=== PATIENT | male | born 1950 | race Caucasian/White ===

== ENCOUNTER 2017-02-15 08:56 | Emergency (ER) | payer OTHER ==
[2017-02-15 09:09] VITALS: BP 111/77; PULSE 73; RESP 16; TEMP 97.7; O2SAT 95
--- NOTE | 2017-02-15 09:16 | EDPHY ---
H & P Stated Complaint: R flank pain x 3 days; thinks he has kidney stone Time Seen by Provider: 02/15/17 09:11 HPI/ROS: CHIEF COMPLAINT: Right flank pain HISTORY OF PRESENT ILLNESS: This patient is a 67 year old male with history of kidney stones complaining of right flank pain. Onset of right-sided low back pain 3 days ago. The pain has been intermittent and mild over the past 3 days, though greatly exacerbated today. This morning, the pain became so intense his knees buckled. The pain is generally worse when he is upright and exacerbated by movement. Associated with radiation towards his groin. He denies any pain radiating to his leg. He denies dysuria or hematuria, but he has noted increased difficulty with starting to urinate. His current symptoms feel similar to his past episodes of kidney stones. He called his primary care provider's office, and staff recommended he present to the emergency department for evaluation. He denies abdominal pain, diarrhea, fever, chest pain, shortness of breath, headache, or other associated symptoms. REVIEW OF SYSTEMS: A 10 point review of systems was performed and is negative with the exception of the elements mentioned in the history of present illness. - Personal History Current Tetanus Diphtheria and Acellular Pertussis (TDAP): Yes - Medical/Surgical History PMH: 1. History of prostate cancer s/p prostatectomy 2. Orthopedic surgeries 3. Kidney stones 4. Deviated septum 5. Depression 6. Anxiety 7. Migraines Hx Asthma: No Hx Chronic Respiratory Disease: No Hx Diabetes: No Hx Cardiac Disease: No Hx Renal Disease: No Hx Cirrhosis: No Hx Alcoholism: No Hx HIV/AIDS: No Hx Splenectomy or Spleen Trauma: No Other PMH: ED, Depression, Anxiety/Sleep issues. ortho surgeries, deviated septum, prostatectomy for prostate CA, kidney stones, migraines - Social History Smoking Status: Never smoked Additional Social History: Nonsmoker. Occasional alcohol use. Retired. Former actor. Lives in [place]. - Physical Exam Exam: General Appearance: Alert, comfortably reading a book Eyes: Pupils equal and round, no conjunctival pallor or injection ENT, Mouth: Mucous membranes moist Neck: Normal inspection Respiratory: Lungs are clear to auscultation Cardiovascular: Regular rate and rhythm Abdomen: soft, suprapubic and RUQ tenderness, no peritoneal signs Back: Normal inspection, no midline tenderness to palpation or percussion, no CVA tenderness Neurological: A&O, nonfocal, normal gait Skin: Warm and dry, no rash Extremities: Nontender, no pedal edema Psychiatric: Mood and affect normal Constitutional: Initial Vital Signs Temperature (C) 36.5 C 02/15/17 09:05 Heart Rate 73 02/15/17 09:05 Respiratory Rate 16 02/15/17 09:05 Blood Pressure 111/77 02/15/17 09:05 O2 Sat (%) 95 02/15/17 09:05 O2 Delivery Mode Room Air Allergies/Adverse Reactions: codeine Allergy (Mild, Verified 02/15/17 09:05) nausea Penicillins Allergy (Mild, Verified 02/15/17 09:05) Rash Home Medications: Medication Instructions Recorded Lexapro 03/18/14 Medical Decision Making ED Course/Re-evaluation: 67 y/o male with history of kidney stones presents with right lower back/flank pain worsening over the last three days. Exam reveals suprapubic and RUQ tenderness. Plan for CT abdomen/pelvis to r/o kidney stone. 10:[address] Hood, radiologist. CT shows inflammation near psoas musculature. No evidence of kidney stones. Plan for follow up with primary care in 2-3 days. He will need a repeat CT in one month to ensure that the inflammation is not a soft tissue tumor. The patient understands the CT finding and will follow up. Reassessed patient. Reviewed CT results with him and gave him a copy of the report. Follow up and return precautions discussed. He is comfortable with this plan. Differential Diagnosis: Differential diagnosis includes though it is not limited to appendicitis, cholecystitis, diverticulitis, pyelonephritis, bowel perforation, small bowel obstruction. - Data Points Laboratory Results: Laboratory Results 02/15/17 09:48 02/15/17 09:48 Departure - Departure Disposition: Home, Routine, Self-Care Clinical Impression: Flank pain Condition: Good Instructions: Acute Low Back Pain (ED), Back Pain (ED) Additional Instructions: 1. Take ibuprofen or Tylenol as directed below as needed for pain. 2. Follow up with your primary care provider in 2-3 days for continued evaluation of symptoms. 3. Obtain a repeat abdomen/pelvis CT in about one month as we discussed. 4. Return to the emergency department for worsening or uncontrollable pain, weakness, numbness, or tingling in your legs, difficulty controlling your bowels or bladder, fever, inability to urinate, or other worsening of condition. Adult Pain & Fever Control: We recommend Acetaminophen (Tylenol) and Ibuprofen (Motrin,Advil) for pain and fever control. When fever is high or pain severe, both drugs can be used at the same time, but at different intervals. Please note the time differences. Your dose is: Acetaminophen 650mg every 4 to 6 hours Ibuprofen 600mg every 6-8 hours with food Note: do not take Acetaminophen with Hydrocodone (Vicodin, Lortab) or Oxycodone (Percocet). These medications also contain Acetaminophen. No more than 3000mg of Acetaminophen should be taken in 24 hours (for an adult). Referrals: Stanley Salas, [Primary Care Provider] - As per Instructions Report Scribed for: Darlene Nazario Report Scribed by: Kenyatta Rangel Date of Report: 02/15/17 Time of Report: 09:14 Physician Review and Approval Statement: 02/15/17 09:14 Portions of this note were transcribed by a medical office scheduler. I personally performed a history, physical exam, medical decision making, and confirmed accuracy of information the transcribed note.
[2017-02-15 09:45] LABS: COLOR YELLOW; LEUKOCYTE ESTERASE,URINE NEGATIVE (NEGATIVE); NITRITE,URINE NEGATIVE (NEGATIVE)
[2017-02-15 10:00] LABS: % IMMATURE GRANULYOCYTES 0.2 % (0.0-1.1); ABSOLUTE IMMATURE GRANULOCYTES 0.01 10^3/uL (0.00-0.10); ADD DIFF? NO; ADD MORPH? NO; ADD SCAN? NO; ATYPICAL LYMPHOCYTE FLAG 0 (0-99); FRAGMENT RBC FLAG 0 (0-99); HEMATOCRIT 45.4 % (40.0-51.0); HEMOGLOBIN 15.9 g/dL (13.7-17.5); LEFT SHIFT FLG 0 (0-99); LIPEMIA HEMOLYSIS FLAG 90 (0-99); MEAN CELL HEMOGLOBIN 33.4 pg (27.9-34.1); MEAN CELL VOLUME 95.4 fL (81.5-99.8); MEAN PLATELET VOLUME 9.9 fL (8.7-11.7); PLATELET CLUMPS FLAG 0 (0-99); PLATELET COUNT 200 10^3/uL (150-400); RED BLOOD CELL COUNT 4.76 10^6/uL (4.40-6.38); RED CELL DISTRIBUTION WIDTH 13.1 % (11.5-15.2)
[2017-02-15 10:16] LABS: ANION GAP 11 mEq/L (8-16); CARBON DIOXIDE 25 mEq/l (22-31); CHLORIDE 106 mEq/L (97-110); CREATININE 0.7 mg/dL (0.7-1.3); GLOMERULAR FILTRATION RATE > 60; GLUCOSE 101 mg/dL (70-100); POTASSIUM 4.2 mEq/L (3.5-5.2); SODIUM 142 mEq/L (134-144)
== END 2017-02-15 11:16 | disposition home or self-care (01) ==
DX: R10.9 Unspecified abdominal pain (principal); Z85.46 Personal history of malignant neoplasm of prostate

== ENCOUNTER → 2017-04-04 | Outpatient (CLI) | payer OTHER ==
[~2017-04-04] MED LIST: IOPAMIDOL (ISOVUE-300) 100 ML BTL ONE
== END ==
LOC: FIMAGING 15:06
PROVIDERS: ATTEND Family Medicine
DX: N20.1 Calculus of ureter (principal); K65.4 Sclerosing mesenteritis
CPT/HCPCS: 74177; Q9967